=== PATIENT | female | born 1965 | race Caucasian/White ===

== ENCOUNTER 2018-12-30 17:23 | Emergency (ER) | payer OTHER, SELFPAY ==
[2018-12-30] VITALS (60 sets, daily range): BP systolic 102–144; BP diastolic 59–86; PULSE 58–75; RESP 11–24; TEMP 36.7–37.1; O2SAT 96–100
--- NOTE | 2018-12-30 17:34 | DI.RAD_ITS ---
SYMPTOM/DIAGNOSIS: CHEST PAIN, R/O ACUTE DISEASE CHEST X-RAY: PA and lateral. No priors. The heart is normal in size. The lungs are clear. The mediastinal structures and pleura appear intact. CONCLUSION: Normal chest.
--- NOTE | 2018-12-30 17:35 | ED.GENADUL_ITS ---
Discharge Plan Disposition Patient Disposition: HOME Condition: Good Discharge Details Chief Complaint: Chest Pain Clinical Impression: Chest pain, Dizziness, Dyspnea Primary Care Provider: Donna Quan ED Provider: William Chaney [place] Meds and New Rx's Prescriptions: New isosorbide mononitrate 30 mg tablet extended release 24 hr 30 mg PO DAILY Qty: 30 RF: 0 Continued nitroglycerin 0.4 mg Tablet, Sublingual 0.4 mg sublingual DIRECTED RF: 0 atorvastatin 80 mg Tablet 80 mg PO DAILY RF: 0 amlodipine 10 mg Tablet 10 mg PO DAILY RF: 0 clopidogrel 75 mg Tablet 75 mg PO DAILY RF: 0 Discharge Instructions Additional Instructions: Your work-up tonight shows no evidence of a heart attack. You will need close follow-up with your laborer rags and should call the office on Thursday for an ap pointment in the next week. We will start you on long acting nitroglycerin. Continue your other medications as before. Return to the ED for recurrent chest pain, shortness of breath, sweatiness, lightheadedness, other concerns or problems. Discharge Data Discharge Date/Time-TO BE ENTERED AT DEPARTURE: 12/30/18 23:46 Medical Decision Making <Blessing Jackson DO - Last Filed: 01/03/19 21:01> 53-year-old female with a history of coronary artery disease on Plavix, Norvasc and Lipitor who presents with dizziness, shortness of breath and chest pain that started today. Chest heaviness still present on arrival to ED. EKG noted a rate of 64, sinus, with [address] depression in lead I with T wave inversion in V2. Old EKG from [place] notes that the T wave inversion and ST depression appears new compared to EKG in January 2018. Considering patient's history, concern for ACS. She has no DVT/PE risk factors and is not tachycardic or hypoxic, so doubt PE. Cardiac work-up ordered on arrival which is unremarkable. Chest x-ray negative. 1940 --patient denies any current symptoms. She stated she wanted to go home. Advised patient that with her history, would recommend admission overnight, but she is declining at this time. She is agreeable to stay for a second troponin. Medical Records Medical records reviewed: Yes I reviewed the patient's medical records. ECG Data Attestation: I personally reviewed and interpreted this ECG (s) as follows: Interpretation: Rate of 64, sinus, [address] depression in 1. No acute ST elevation. [place] 110. QTc 406. QRS 88 <William Chaney MD - Last Filed: 12/30/18 23:39> Patient signed out to me pending second EKG and troponin. She had presented with an episode of chest pain, shortness of breath, lightheadedness that occurred at work. It did not respond to her nitroglycerin. She arrived here with some residual discomfort. Subsequently resolved on its own. Initial work- up unremarkable other than an initial EKG which showed some mild ST depression in the lateral leads. Patient has had no recurrent symptoms here. Her vital signs have been stable. Her second troponin has come back negative. Her second EKG continues to show minimal but less depression in the lateral leads. Patient's HEART score is a 5. She should be admitted. Will discuss with cardiology at [facility]. Spoke with cardiology, Dr. Samuel, at [facility]. Faxed the EKGs down to him. Reviewed the patient's presentation, EKGs, laboratory studies. He felt that the patient could be discharged home with close follow-up with cardiology. Recommended starting isosorbide mononitrate at 30 mg a day. Patient to call laborer rags Thursday to make appointment for follow-up in the next week or 2. Return to emergency department if she develops any further chest pain, shortness of breath, diaphoresis, lightheadedness. I have discussed the plan with patient and her sister. They are understanding of the plan and in agreement. Lab Data Lab results reviewed: Yes I reviewed the patient's lab results. ECG Data Attestation: I personally reviewed and interpreted this ECG (s) as follows: Prior ECG tracings: available for review Interpretation: Second EKG is sinus bradycardia at 57. Normal axis and intervals. Minimal depression in 1 and aVL. Minimal residual depression in V3 through V6. Appears less than the 1 mm apparent on her first EKG. HPI <Blessing Jackson DO - Last Filed: 01/03/19 21:01> General Mode of arrival: ambulatory . Date/Time Provider Initiated Documentation: 12/30/18 17:34 . Limitations to Documentation: no limitations . Information obtained by: patient . 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 She states she then took a nitro without relief. In route to the emergency department she developed substernal chest heaviness which resolved after 10 minutes. She denies any recent travel, recent surgery, leg pain or swelling. Related Data Home Medications Medication Instructions Recorded Confirmed amlodipine 10 mg PO DAILY 12/30/18 12/30/18 atorvastatin 80 mg PO DAILY 12/30/18 12/30/18 clopidogrel 75 mg PO DAILY 12/30/18 12/30/18 isosorbide mononitrate 30 mg PO DAILY #30 tab 12/30/18 nitroglycerin 0.4 mg SUBLINGUAL DIRECTED 12/30/18 12/30/18 Previous Rx's Medication Instructions Recorded isosorbide mononitrate 30 mg PO DAILY #30 tab 12/30/18 Allergies Allergy/AdvReac Type Severity Reaction Status Date / Time aspirin AdvReac Intermediate Hives Unverified 12/30/18 17:31 choline salicylate AdvReac Intermediate Hives Unverified 12/30/18 17:32 [From Trilisate] magnesium salicylate AdvReac Intermediate Hives Unverified 12/30/18 17:32 [From Trilisate] Penicillins AdvReac Mild yeast Unverified 12/30/18 17:31 infection General Stated Complaint: Chest Pain DOROTHY: 2 Review of Systems <Blessing Jackson DO - Last Filed: 01/03/19 21:01> Review of Systems All systems reviewed & are unremarkable except as noted in HPI and below Constitutional Reports as per HPI, Denies chills and Denies fever(s) Eyes Denies blurry vision ENT Denies dizziness, Denies sore throat and Denies throat swelling Cardiovascular Denies chest pain and Denies dyspnea Respiratory Denies cough and Denies dyspnea Gastrointestinal Denies abdominal pain, Denies diarrhea and Denies vomiting Genitourinary Denies hematuria and Denies dysuria Musculoskeletal Denies back pain and Denies numbness Integumentary/Breasts Denies lesions and Denies rash Neurologic Denies dizziness, Denies focal weakness and Denies numbness Allergic/Immunologic Denies throat swelling PFS <Blessing Jackson DO - Last Filed: 01/03/19 21:01> Medical History Blockage of coronary artery of heart (Acute) Social History Smoking/Tobacco Use Status: Former Tobacco Use Quit Date: 06/23/06 Drug use: Never Do you feel safe at home: Yes Do you feel safe in your relationship?: Yes Exam <Blessing Jackson DO - Last Filed: 01/03/19 21:01> Const General: cooperative, healthy appearing and no acute distress HENMT Head: normal to inspection Face and sinus: normal facial exam Eyes General: appearance normal, both eyes and all related structures EOM: EOM intact bilaterally Neck Neck: normal visual inspection and No submandibular swelling Lymphatic: no lymphadenopathy noted Chest Chest: normal inspection of the chest and no tenderness Resp Effort & Inspection: normal respiratory effort and able to speak in complete sentences Auscultation: clear to auscultation bilaterally Cardio Rate: regular rate Rhythm: regular rhythm GI Inspection: normal to inspection Palpation: soft, not firm, not rigid and nontender Auscultation: normal bowel sounds Skin General skin exam: no rashes or lesions noted Neuro General: alert, awake and oriented x3 Cognition: normal cognition Speech: speech normal Motor: muscle tone normal throughout Sensory Exam: no sensory deficits noted Extrem General: normal to inspection, full ROM, normal capillary refill, no calf tenderness bilaterally and no edema Psych Appearance: grossly normal Mental Status: mental status grossly normal Speech and Movement: speech and movement normal Affect: normal affect Course <Blessing Jackson DO - Last Filed: 01/03/19 21:01> Vital Signs Temperature 98.1 F 12/30/18 17:25 Pulse 64 12/30/18 17:25 Respiratory Rate 18 12/30/18 17:25 Blood Pressure 132/70 12/30/18 17:25 Pulse Oximetry 99 12/30/18 17:25 Temperature 98.1 F 12/30/18 17:25 Temperature Source Skin 12/30/18 17:25 Pulse 64 12/30/18 17:25 Respiratory Rate 18 12/30/18 17:25 Blood Pressure 132/70 12/30/18 17:25 Blood Pressure Position Sitting 12/30/18 17:25 Pulse Oximetry 99 12/30/18 17:25 Oxygen Delivery Method Room Air 12/30/18 17:25 Oxygen Flow Rate 0 12/30/18 17:25 Pain Level 3 12/30/18 17:25 Sign Out <Blessing Jackson DO - Last Filed: 01/03/19 21:01> Sign Out Data: Sign Out Comment: Case endorsed to Dr. Chaney to follow-up on second troponin and final disposition. Last updated by Blessing Jackson DO at 12/30/18 19:58
[2018-12-30 17:53] LABS: Absolute Basophil Count 0.06 k/cumm (0.0-0.2); Absolute Eosinophil Count 0.08 k/cumm (0.0-0.7); Absolute Lymphocyte Count 2.23 k/cumm (1.2-3.4); Absolute Monocyte Count 0.45 k/cumm (0.11-0.7); Absolute Neutrophil Count 3.81 k/cumm (1.2-6.7); Basophils % 0.9; Eosinophils % 1.2; HCT 39.1 % (36.0-46.0); HGB 13.2 g/dL (12.0-15.5); Lymphocytes % 33.6; Mean Corp. HGB Concentration 33.8 g/dL (32.0-36.0); Mean Corpuscular Hemoglobin 28.8 pg (27.0-33.0); Mean Corpuscular Volume 85.4 fL (80-95); Monocytes % 6.8; Neutrophils % 57.5; Platelet Count 323 x1000/uL (130-400); RBC 4.58 m/cumm (4.00-5.20); RBC Distribution Width 13.4 % (11.7-14.6); White Blood Cell Count 6.63 k/cumm (4.4-10.8)
[2018-12-30 18:20] LABS: ALT 37 U/L (12-78); AST 23 U/L (15-37); Albumin 4.1 g/dL (3.4-5.0); Alkaline Phosphatase 93 U/L (46-116); BUN 15 mg/dL (7-18); Bilirubin, Total 0.5 mg/dL (0.2-1.0); Chloride 104 mmol/L (98-107); Estimated GFR 57.56 (mL/min/1.73m2); Glucose 127 mg/dL (70-100); Magnesium 1.8 mg/dL (1.8-2.4); Potassium 3.7 mmol/L (3.5-5.1); Sodium 143 mmol/L (136-145); Total Protein 7.5 g/dL (6.4-8.2); Troponin I < 0.05 ng/mL (0.00-0.06)
--- NOTE | 2018-12-30 19:09 | DI.VRAD_ITS ---
EXAM: XR Chest, 2 Views EXAM DATE/TIME: 12/30/2018 5:35 PM CLINICAL HISTORY: 53 years old, female; Shortness of breath TECHNIQUE: Imaging protocol: XR of the chest, 2 views. COMPARISON: No relevant prior studies available. FINDINGS: Lungs: Unremarkable. No consolidation. Pleural space: Unremarkable. No pleural effusion. No pneumothorax. Heart/Mediastinum: Unremarkable. No cardiomegaly. Bones/joints: No acute skeletal abnormality. IMPRESSION: Negative for acute thoracic pathology. Dictated and Authenticated by: Dustin Bentley MD. Ordering:LEANDRA Funk MD
[2018-12-30 22:16] LABS: Troponin I < 0.05 ng/mL (0.00-0.06)
== END 2018-12-30 23:46 | disposition home or self-care (01) ==
PROVIDERS: Physician Assistant; Emergency Provider Emergency Medicine; PCP Internal Medicine
DX: R07.9 Chest pain, unspecified (principal); R42 Dizziness and giddiness; R06.00 Dyspnea, unspecified; I25.10 Atherosclerotic heart disease of native coronary artery without angina pectoris; Z79.02 Long term (current) use of antithrombotics/antiplatelets
CPT/HCPCS: 36415; 80053; 93005; 99285; 71046; 83735; 84484; 85025; 93010

== ENCOUNTER 2019-01-06 21:53 | Observation (INO) | payer OTHER, SELFPAY ==
[2019-01-06] VITALS (18 sets, daily range): BP systolic 106–143; BP diastolic 55–69; PULSE 57–72; RESP 13–22; TEMP 36.5; O2SAT 98–100
[2019-01-06 22:20] LABS: Abs Immature Grans 0.01 k/cumm (0.0-0.09); Absolute Basophil Count 0.05 k/cumm (0.0-0.2); Absolute Eosinophil Count 0.14 k/cumm (0.0-0.7); Absolute Lymphocyte Count 2.15 k/cumm (1.2-3.4); Absolute Monocyte Count 0.38 k/cumm (0.11-0.7); Absolute Neutrophil Count 2.81 k/cumm (1.2-6.7); Basophils % 0.9; Eosinophils % 2.5; HCT 36.9 % (36.0-46.0); HGB 12.2 g/dL (12.0-15.5); Immature Grans % 0.2; Lymphocytes % 38.8; Mean Corp. HGB Concentration 33.1 g/dL (32.0-36.0); Mean Corpuscular Hemoglobin 28.3 pg (27.0-33.0); Mean Corpuscular Volume 85.6 fL (80-95); Mean Platelet Volume 9.8 fL (8.0-11.0); Monocytes % 6.9; Neutrophils % 50.7; Platelet Count 289 x1000/uL (130-400); RBC 4.31 m/cumm (4.00-5.20); RBC Distribution Width 13.4 % (11.7-14.6); White Blood Cell Count 5.54 k/cumm (4.4-10.8)
--- NOTE | 2019-01-06 22:31 | ED.GENADUL_ITS ---
Discharge Plan Disposition Patient Disposition: [facility] INPATIENT Condition: Good Discharge Details Chief Complaint: Chest Pain Clinical Impression: Chest pain Primary Care Provider: Donna Quan ED Provider: William Chaney [place] Meds and New Rx's Prescriptions: No Action nitroglycerin 0.4 mg Tablet, Sublingual 0.4 mg sublingual DIRECTED RF: 0 atorvastatin 80 mg Tablet 80 mg PO DAILY RF: 0 amlodipine 10 mg Tablet 10 mg PO DAILY RF: 0 clopidogrel 75 mg Tablet 75 mg PO DAILY RF: 0 Medical Decision Making Patient presenting with recurrent chest pain that now radiates into the entire left upper arm and back. Nitroglycerin did not help. She saw her asian studies program chair on Thursday. I reviewed his note. He feels that it is atypical pain. He did want to schedule her for stress imaging to help stratify her risk. This is not scheduled until the . Patient with recurrent prolonged symptoms tonight. EKG tonight shows no acute ST changes. IV established laboratory studies obtained. Essentially asymptomatic here. Labs are unremarkable. First troponin negative. Discussed with hospitalist. Cardiology available tomorrow and should be able to get nuclear imaging done. As this is her second ED visit and her symptoms were more prolonged we will go ahead and bring in observation status, serial enzymes, stress testing. Patient is agreeable with plan. Medical Records Medical records reviewed: Yes I reviewed the patient's medical records. Lab Data Lab results reviewed: Yes I reviewed the patient's lab results. ECG Data Attestation: I personally reviewed and interpreted this ECG (s) as follows: Prior ECG tracings: available for review Interpretation: Sinus rhythm at 67. Normal axis and intervals. No acute ST changes and no significant change from EKG done last week. HPI General Mode of arrival: ambulatory . Date/Time Provider Initiated Documentation: 01/06/19 22:10 . Limitations to Documentation: no limitations . Information obtained by: patient, RN notes reviewed and old records reviewed . HPI Narrative: Patient presents to ED from work with recurrent chest pain, left arm pain, back pain. Patient seen here last week for same. At that time I handled her discharge. I had spoke with [facility] cardiology regarding plan. She was discharged on Imdur and was to follow-up with her asian studies program chair this week. That occurred on Thursday. She reports that despite the Imdur she continued to have episodes of chest pain that would occasionally radiate to the back of her left arm. They were fairly short-lived lasting a minute or 2. She reports that her asian studies program chair discontinued to the Imdur because it was giving her a headache but not helping the chest pain. She has been scheduled for a stress test on January 25. Tonight at work she developed chest pain, left arm pain involving the entire upper arm and back pain. This was not short-lived. The arm discomfort lasted for some time. She took a nitroglycerin with no relief. She then came here. She had no associated symptoms. She currently denies having any pain though intermittently has short-lived discomfort in the arm that comes and goes. She is unable to take aspirin. Related Data Home Medications Medication Instructions Recorded Confirmed amlodipine 10 mg PO DAILY 12/30/18 01/06/19 atorvastatin 80 mg PO DAILY 12/30/18 01/06/19 clopidogrel 75 mg PO DAILY 12/30/18 01/06/19 nitroglycerin 0.4 mg SUBLINGUAL DIRECTED 12/30/18 01/06/19 Allergies Allergy/AdvReac Type Severity Reaction Status Date / Time aspirin AdvReac Intermediate Hives Unverified 01/06/19 22:01 choline salicylate AdvReac Intermediate Hives Unverified 01/06/19 22:01 [From Trilisate] magnesium salicylate AdvReac Intermediate Hives Unverified 01/06/19 22:01 [From Trilisate] Penicillins AdvReac Mild yeast Unverified 01/06/19 22:01 infection General Stated Complaint: Chest Pain DOROTHY: 3 Review of Systems Review of Systems 02/21 Review of Systems completed and is negative except as stated above in HPI (Systems reviewed: Const, Eyes, ENT, Resp, CV, GI, , MSK, Skin, Neuro) [facility] Medical History Blockage of coronary artery of heart (Acute) Cataract (Chronic) delivery delivered (Acute) Ganglion cyst (Acute) High cholesterol (Chronic) Surgical History History of lumpectomy (Acute) History of tubal ligation (Chronic) Social History Smoking/Tobacco Use Status: Former Tobacco Use Quit Date: 06/23/06 Drug use: Never Do you feel safe at home: Yes Do you feel safe in your relationship?: Yes Exam Narrative Exam Narrative: Vitals: Afebrile. Mildly hypertensive. Otherwise normal vitals and pulse oximetry. Const: WDWN female in NAD. HEENT: NC/AT. Normal facial exam. Eyes: Normal conjunctiva and sclera. Neck: Supple. Trachea midline. Lungs: Normal respiratory effort. Lungs are clear. Cor: RRR without murmur/gallop. Good radial pulses. GI: Soft. NT/ND. No guarding or rebound. Neuro: A+O x 3. CN grossly in tact. Good strength and no focal deficit. Ext: No C/C/E. No deformity or tenderness. Skin: Warm and dry without rash. Course Vital Signs Temperature 97.7 F 01/06/19 21:56 Pulse 61 01/06/19 21:56 Respiratory Rate 16 01/06/19 21:56 Blood Pressure 143/68 H 01/06/19 21:56 Pulse Oximetry 100 01/06/19 21:56 Temperature 97.7 F 01/06/19 21:56 Temperature Source Skin 01/06/19 21:56 Pulse 61 01/06/19 21:56 Respiratory Rate 16 01/06/19 22:03 Respiratory Effort Non-Labored 01/06/19 22:03 Blood Pressure 143/68 H 01/06/19 21:56 Pulse Oximetry 100 01/06/19 21:56 Pain Level 2 01/06/19 21:56 Lab/Test Results Lab/Test Results: Laboratory Tests Range/Units 01/06/19 22:15 WBC (4.4-10.8) k/cumm 5.54 RBC (4.00-5.20) m/cumm 4.31 Hgb (12.0-15.5) g/dL 12.2 Hct (36.0-46.0) % 36.9 MCV (80-95) fL 85.6 MCH (27.0-33.0) pg 28.3 MCHC (32.0-36.0) g/dL 33.1 RDW (11.7-14.6) % 13.4 Plt Count (130-400) x1000/uL 289 MPV (8.0-11.0) fL 9.8 Immature Gran % 0.2 Neutrophils % 50.7 Lymphocytes % 38.8 Monocytes % 6.9 Eosinophils % 2.5 Basophils % 0.9 Absolute Neutrophils (1.2-6.7) k/cumm 2.81 Absolute Lymphocytes (1.2-3.4) k/cumm 2.15 Absolute Monocytes (0.11-0.7) k/cumm 0.38 Absolute Eosinophils (0.0-0.7) k/cumm 0.14 Absolute Basophils (0.0-0.2) k/cumm 0.05
[2019-01-06 22:47] LABS: ALT 38 U/L (14-59); AST 21 U/L (15-37); Albumin 3.7 g/dL (3.4-5.0); Alkaline Phosphatase 89 U/L (46-116); Anion Gap 8.8 mmol/L (3-11); BUN 12 mg/dL (7-18); Bilirubin, Total 0.5 mg/dL (0.2-1.0); CO2 28.2 mmol/L (21.0-32.0); CREATININE 0.98 mg/dL (0.55-1.02); Calcium 8.5 mg/dL (8.5-10.1); Chloride 107 mmol/L (98-107); Estimated GFR 58.92 (mL/min/1.73m2); Glucose 148 mg/dL (70-100); Potassium 3.9 mmol/L (3.5-5.1); Sodium 144 mmol/L (136-145)
[2019-01-06 22:48] LABS: Troponin I < 0.05 ng/mL (0.00-0.06)
[2019-01-07] VITALS (40 sets, daily range): BP systolic 107–122; BP diastolic 50–70; PULSE 55–79; RESP 5–24; TEMP 36.6–36.8; O2SAT 95–100
--- NOTE | 2019-01-07 01:37 | W.PM.HP.N ---
Date of service: 01/07/19 Time of Service: 01:37 Assessment and Plan (1) Atypical chest pain: Current visit: Yes Status: Acute continue her current meds of atorvastatin, amlodipine and plavix; keep NPO for stress GXT w/ MPI in the a.m. assuming that all of her troponins are negative tonight. History of Present Illness Chief Complaint: chest pain Narrative: 53 yr old female w/ PMH of HLD, HTN and presumed CAD. She has hx of prior abnormal stress tests but has never had a cardiac catheterization. She presents to the ER w/ c/o of SSCP w/ radiation down her left arm and into her left scapular area. 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 There was no dyspnea nor any diaphoresis nor nausea and vomiting. She took a NTG w/ slight improvement in her CP and she presented to the ER for further evaluation. She had similar episode a week ago but was associated w/ dizziness and dyspnea. At that time her EKG demonstrated [address] depression in lead I and T wave inversion in V2 but no acute ST elevation. Troponins were negative x 2 sets and patients CP had improved. The patient did not want to be admitted overnight. Dr. Chaney who took over her case from Dr. Jackson, called [facility] and spoke w/ Dr. Samuel, engineering recruiter environmental sustainability manager, who recommended starting on Imdur 30 mg daily. She was discharged on Imdur and close follow up with her primary oil and gas superintendent. The patient saw Dr. Jac Diego in [facility]. who indicated that her CP are atypical in that they come and go w/ and w/out exertion sometimes going away in less than a minute and other times lasting hours. He recommended she have a repeat stress with imaging and has set her up for exercise stress echocardiogram but this is not until Jan 25. She quit taking the Imdur after she saw Dr. Diego due to severe headaches while taking the Imdur. Tonight her chest pain had dissipated by the time she arrived to the ER. She still had some left arm pain but this seems to be reproducible w/ palpation or movement of her biceps. Her EKG is unchanged and shows no acute ischemic ST-T changes and her first troponin is negative. She is now admitted for serial troponins and stress MPI in the morning. Her risks for CAD include strong FH (multiple members w/ NE/CAD), former smoker, HLD, age. Of note she is not on ASA due to allergy to trilisate, aspirin and alkaseltzer. She says that anytime she has had aspirin she has broken out w/ hives and at times it has been severe enough to cause her to have facial swelling. Dr. Diego, her oil and gas superintendent, has referred her to an dividend clerk at [facility] to consider ASA desensitization as he feels that she will need ASA in the future. Review of Systems Constitutional Reports system reviewed and no additional complaints, except as docu Cardiovascular Reports as per HPI Respiratory Reports as per HPI [facility] Medical History (Updated 01/07/19 @ 03:10 by Hank Rasheed) Abnormal stress test (Acute) ETT 12/2016 (Dr. Rankin): 6 min., 7 METS, slight CP and leg fatigue, HR 148, bp 184/67, 1.[address] depress 2,3, F, V3-V6; resting HR 44 ETT 01/2018 while on meds: ST sagging inf & lat leads; no CP, HR 135 Cataract (Chronic) Endometriosis (Chronic) Ganglion cyst (Acute) High cholesterol (Chronic) Surgical History (Updated 01/07/19 @ 03:02 by Hank Rasheed) delivery delivered (Acute) Ganglion cyst of dorsum of right wrist (Acute) History of lumpectomy (Acute) History of tubal ligation (Chronic) S/P [id number]-BSO (Acute) Family History (Updated 01/07/19 @ 03:07 by Hank Rasheed) Father Heart disease s/p coronary stents Hyperlipidemia Diabetes History of non-ST elevation myocardial infarction (NSTEMI) Mother Heart disease s/p 3 vessel CABG Brother History of non-ST elevation myocardial infarction (NSTEMI) Heart disease Maternal Grandmother Heart disease Social History (Updated 01/07/19 @ 03:03 by Hank Rasheed) Smoking/Tobacco Use Status: Former Tobacco Use Quit Date: 06/23/06 Pack-years: 15 Tobacco: How many years used: 30 Alcohol Intake: current Alcohol Intake frequency: holidays/special occasions only Alcohol type: hard liquor Drug use: Never Do you feel safe at home: Yes Do you feel safe in your relationship?: Yes History History 1 Para Hx # Term Pregnancies 1 Multiple births Hx # Pregnancies Ectopic pregnancies AB induced Hx Number of Living Children AB spontaneous Meds Home Medications Medication Instructions Recorded Confirmed Type amlodipine 10 mg PO DAILY 12/30/18 01/06/19 History atorvastatin 80 mg PO DAILY 12/30/18 01/06/19 History clopidogrel 75 mg PO DAILY 12/30/18 01/06/19 History nitroglycerin 0.4 mg SUBLINGUAL DIRECTED 12/30/18 01/06/19 History Allergies Allergy/AdvReac Type Severity Reaction Status Date / Time aspirin AdvReac Intermediate Hives Unverified 01/06/19 22:01 choline salicylate AdvReac Intermediate Hives Unverified 01/06/19 22:01 [From Trilisate] magnesium salicylate AdvReac Intermediate Hives Unverified 01/06/19 22:01 [From Trilisate] Penicillins AdvReac Mild yeast Unverified 01/06/19 22:01 infection Exam Const General: cooperative, no acute distress and well groomed Nutritional Appearance: average body habitus and well nourished Orientation: alert, awake and oriented x3 HENMT Head: normal to inspection, no palpable skull fracture, normocephalic and atraumatic Ears: external ears normal and TM's normal bilaterally General nose exam: external nose normal, nares normal and no nasal discharge Face and sinus: normal facial exam, sinuses nontender and face symmetric Mouth: oral mucosae normal, lip normal, tongue normal, oropharynx normal and moist mucous membranes Teeth and gingiva: dentition normal and gingiva normal Throat: posterior oropharynx normal and uvula midline Eyes General: appearance normal, both eyes and all related structures Visual Dowell: normal visual dowell by confrontation Alignment and Position: alignment normal Periorbital: periorbital findings normal Eyelids: eyelids normal Conjunctivae: conjunctivae normal Sclera: sclerae normal Cornea: corneas normal Pupils: PERRL, normal by confrontation and accommodation normal EOM: EOM intact bilaterally Direct ophthalmoscopy: normal light reflex, no photophobia, no papilledema, fundi normal bilaterally and anterior chamber normal Neck Neck: normal visual inspection, full ROM, no lymphadenopathy, trachea midline and supple Thyroid: thyroid normal Carotids: normal carotid upstroke Lymphatic: no lymphadenopathy noted Chest Chest: normal inspection of the chest and normal palpation of entire chest wall Resp Effort & Inspection: normal respiratory effort and able to speak in complete sentences Auscultation: clear to auscultation bilaterally Percussion: percussion normal Cardio Jugular venous pressure: no JVD Palpation: normal PMI Rate: regular rate Rhythm: regular rhythm Heart Sounds: S1 normal, S2 normal and normal, physiologic split S2 Pulses: normal peripheral pulses GI Inspection: normal to inspection Palpation: soft, no hepatosplenomegaly and nontender Percussion: normal to percussion Auscultation: normal bowel sounds Skin General skin exam: no rashes or lesions noted, elasticity normal and turgor normal Lesions: no lesions Rashes: no rashes Trauma: no lacerations or abrasions Hair: normal Nails: normal Neuro General: alert, awake, oriented x3, moves all extremities and no focal motor deficits Cognition: normal cognition Speech: speech normal Motor: muscle tone normal throughout, strength 5/5 throughout, no pronator drift, no movement abnormalities noted and no fasciculations Sensory Exam: no sensory deficits noted Extrem General: normal to inspection, full ROM, normal capillary refill, no joint enlargement, no clubbing, cyanosis or edema and no calf tenderness bilaterally Psych Appearance: grossly normal Mental Status: mental status grossly normal Mood: congruent mood Affect: normal affect Attitude: cooperative Thought Process: normal Thought Content: normal Insight: insight good Judgment: judgment good Results Imaging Chest x-ray: report reviewed EKG: image reviewed (NSR rate 67 bpm, no acute ST-T changes, normal EKG) Labs : 01/06/19 22:15 01/06/19 22:15 Laboratory Results - last 24 hr 01/06/19 01/06/19 22:15 22:15 WBC 5.54 RBC 4.31 Hgb 12.2 Hct 36.9 MCV 85.6 MCH 28.3 MCHC 33.1 RDW 13.4 Plt Count 289 MPV 9.8 Immature Gran % 0.2 Neutrophils % 50.7 Lymphocytes % 38.8 Monocytes % 6.9 Eosinophils % 2.5 Basophils % 0.9 Absolute Neutrophils 2.81 Absolute Lymphocytes 2.15 Absolute Monocytes 0.38 Absolute Eosinophils 0.14 Absolute Basophils 0.05 Sodium 144 Potassium 3.9 Chloride 107 Carbon Dioxide 28.2 Anion Gap 8.8 BUN 12 Creatinine 0.98 Estimated GFR/1.73 m2 58.92 Glucose 148 H Calcium 8.5 Magnesium 2.0 Total Bilirubin 0.5 AST 21 ALT 38 Alkaline Phosphatase 89 Troponin I < 0.05 Total Protein 7.0 Albumin 3.7 Last Vital Signs Temp 36.5 C 01/06/19 21:56 Pulse 62 01/07/19 00:00 Resp 20 01/07/19 00:30 BP 109/55 L 01/07/19 00:00 Pulse Ox 99 01/07/19 00:30
[2019-01-07 01:57] LABS: Troponin I < 0.05 ng/mL (0.00-0.06)
[2019-01-07] MEDS: Normal Saline 1,000 ML 80 ML IV (03:30)
[2019-01-07] MEDS: Normal Saline Flush 10 ML SYR IVP (03:30)
[2019-01-07 06:09] LABS: Troponin I < 0.05 ng/mL (0.00-0.06)
--- NOTE | 2019-01-07 08:28 | W.PM.PROGNOT ---
Date of Service Date of service: 01/07/19 Time of Service: 08:29 Subjective Interval history since last seen: No CP at this time. Not orthostatic. On monitor, has remains in NSR 59-70. Stress test - Objective Objective Clinical Data: Abnormal lab results 01/06/19 Range/Units 22:15 Glucose 148 H (70-100) mg/dL Vital Signs Temperature 36.6 C 01/07/19 04:00 Temperature Source Temporal Artery Scan 01/07/19 04:00 Pulse 59 L 01/07/19 06:00 Pulse 60 01/07/19 06:00 Respiratory Rate 20 01/07/19 06:00 Respiratory Effort Non-Labored 01/07/19 04:00 Respiratory Depth Normal 01/07/19 04:00 Respiratory Pattern Normal 01/07/19 04:00 Blood Pressure 111/63 01/07/19 06:00 Blood Pressure Mean 75 01/07/19 06:00 Blood Pressure Position Supine 01/07/19 04:00 Pulse Oximetry 96 01/07/19 06:00 Oxygen Delivery Method Room Air 01/07/19 04:00 Oxygen Flow Rate 0 01/07/19 04:00 Pain Level 0 01/07/19 04:00 Intake & Output 01/06/19 01/06/19 01/07/19 11:59 23:59 11:59 Output Total 800 / 800 Balance -800 / -800 Weight 77.5 kg 69.7 kg Output: Urine 800 / 800 Other: Urine Color Pale Urine Appearance Clear Urine Odor None Voiding Methods Bedside Commode Laboratory Results WBC 5.54 k/cumm (4.4-10.8) 01/06/19 22:15 RBC 4.31 m/cumm (4.00-5.20) 01/06/19 22:15 Hgb 12.2 g/dL (12.0-15.5) 01/06/19 22:15 Hct 36.9 % (36.0-46.0) 01/06/19 22:15 MCV 85.6 fL (80-95) 01/06/19 22:15 MCH 28.3 pg (27.0-33.0) 01/06/19 22:15 MCHC 33.1 g/dL (32.0-36.0) 01/06/19 22:15 RDW 13.4 % (11.7-14.6) 01/06/19 22:15 Plt Count 289 x1000/uL (130-400) 01/06/19 22:15 MPV 9.8 fL (8.0-11.0) 01/06/19 22:15 Immature Gran % 0.2 01/06/19 22:15 50.7 01/06/19 22:15 38.8 01/06/19 22:15 6.9 01/06/19 22:15 2.5 01/06/19 22:15 0.9 01/06/19 22:15 Absolute Neutrophils 2.81 k/cumm (1.2-6.7) 01/06/19 22:15 Absolute Lymphocytes 2.15 k/cumm (1.2-3.4) 01/06/19 22:15 Absolute Monocytes 0.38 k/cumm (0.11-0.7) 01/06/19 22:15 Absolute Eosinophils 0.14 k/cumm (0.0-0.7) 01/06/19 22:15 Absolute Basophils 0.05 k/cumm (0.0-0.2) 01/06/19 22:15 Sodium 144 mmol/L (136-145) 01/06/19 22:15 Potassium 3.9 mmol/L (3.5-5.1) 01/06/19 22:15 Chloride 107 mmol/L (98-107) 01/06/19 22:15 Carbon Dioxide 28.2 mmol/L (21.0-32.0) 01/06/19 22:15 8.8 mmol/L (3-11) 01/06/19 22:15 BUN 12 mg/dL (7-18) 01/06/19 22:15 0.98 mg/dL (0.55-1.02) 01/06/19 22:15 58.92 (mL/min/1.73m2) 01/06/19 22:15 Glucose 148 mg/dL (70-100) H 01/06/19 22:15 Calcium 8.5 mg/dL (8.5-10.1) 01/06/19 22:15 Magnesium 2.0 mg/dL (1.8-2.4) 01/06/19 22:15 0.5 mg/dL (0.2-1.0) 01/06/19 22:15 AST 21 U/L (15-37) 01/06/19 22:15 ALT 38 U/L (14-59) 01/06/19 22:15 89 U/L (46-116) 01/06/19 22:15 < 0.05 ng/mL (0.00-0.06) 01/07/19 05:35 7.0 g/dL (6.4-8.2) 01/06/19 22:15 3.7 g/dL (3.4-5.0) 01/06/19 22:15
--- NOTE | 2019-01-07 08:30 | MERGEMPI_ITS ---
*[facility]* *[facility]* [address] [place] [address] Myocardial Perfusion Imaging - SPECT Walter protocol Date of study: 01/07/2019 *PATIENT PRESENTATION* Height: 162.6cm (64in) Blood Pressure: Weight: 72.7kg (160lb) BSA: 1.83m^2 Referring physician: Abelardo Amado Ordering physician: Rubio Rasheed Impressions: Normal study after maximal exercise. Summary: 1. Myocardial perfusion imaging: No myocardial perfusion defects noted. 2. The calculated left ventricular ejection fraction after stress: 68%. LV global systolic function is normal. No left ventricular regional motion abnormality. 3. Stress: The target heart rate was achieved. Indication: R07.9. History: REASON FOR TESTING: PATIENT TESTING TODAY FOR FURTHER RISK STRATIFICATION. PATIENT PRESENTED TO THE ER ON 12/30 AND AGAIN ON 01/06 FOR CARDIAC RELATED SYMPTOMS. ON 01/06 PATIENT PRESENTED TO THE ER WITH MIDSTERNAL AND LEFT SIDED CHEST PAIN THAT RADIATED ROUND TO LEFT BACK AND LEFT UPPER ARM THAT WAXED AND WANED FOR APPROXIMATELY 2 MINUTES BEFORE GOING AWAY ON ITS OWN. ON 12/30 PATIENT HAD VERY SIMILAR SYMPTOMS. SEE PATIENT HISTORY FOR MORE DETAILED INFORMATION. PATIENT DENIES CHEST PAIN UPON ARRIVAL TO TESTING TODAY. SIGNIFICANT PAST MEDICAL HISTORY: PATIENT'S BROTHER OF A HEART ATTACK AT AGE 55. PATIENT HAS PRIOR HISTORY OF ABNORMAL STRESS TESTS BUT HAS NEVER HAD CATHETERIZATION. SMOKING STATUS: QUIT 2006. SMOKED FOR 30 YEARS, 1/2 PPD. 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 Risk factors: Family history of coronary artery disease. ALLERGIES: ASPIRIN, TRILISATE, PENICILLIN, ALOE, GHADA SELTZER. MEDICATIONS: NITROGLYCERIN 0.4 MG SL PRN, CLOPIDOGREL 75 MG DAILY, ATORVASTATIN 80 MG DAILY, AMLODIPINE 10 MG DAILY, ACETAMINOPHEN 1000 MG PRN, FLAX SEED DAILY. Imaging Technique: Protocol: Walter protocol. Acquisition: Gated SPECT; 1 day - rest/stress. The patient was imaged in the supine position. Attenuation correction used. Isotope administration: - Rest. Tc[99m]-sestamibi. Dose: 11mCi. Injection time: 12:15 PM. Injection to stress time: 00:45. - Stress. Tc[99m]-sestamibi. Dose: 33mCi. Injection time: 03:00 PM. 1-2 min before end of exercise Baseline ECG: SINUS RHYTHM. HR 71 BPM. Stress protocol: + +---+ + !Stage !HR !BP (mmHg) ! + +---+ + !Baseline supine !71 !122/66 (85) ! + +---+ + !Baseline standing !84 !118/70 (86) ! + +---+ + !Stage I; 1.7mph, 10degrees; 3 min !117!128/82 (97) ! + +---+ + !Stage II; 2.5mph, 12degrees; 3 min!133!140/84 (103)! + +---+ + !Immediate post stress !156! ! + +---+ + !Recovery; 1 min !136!190/78 (115)! + +---+ + !Recovery; 3 min !81 !122/64 (83) ! + +---+ + !Recovery; 6 min !75 !110/62 (78) ! + +---+ + * Stress results: STRESS TEST ENDED IN 8 MINUTES 34 SECONDS DUE TO FATIGUE. NORMAL HEART RATE AND BLOOD PRESSURE RESPONSE TO EXERCISE. MAX HEART RATE:156. 94 % OF TARGET HEART RATE ACHIEVED. MET'S: 10.16 NO ECTOPY. NO ANGINA. NO SIGNIFICANT ST SEGMENT CHANGES. ABOVE AVERAGE FUNCTIONAL CAPACITY. The target heart rate was achieved. The rate-pressure product for the peak heart rate and blood pressure was 98822tc Hg/min. Myocardial perfusion: Imaging information: gated. Left ventricular size is normal. No myocardial perfusion defects noted. Ventricular Function (Wall Motion): The calculated left ventricular ejection fraction after stress: 68%. LV global systolic function is normal. No left ventricular regional motion abnormality. Study data: Abelardo Amado MD supervised and was readily available during the procedure. This study was interpreted by [facility]. Study status: Routine. Consent: The risks, benefits, and alternatives to the procedure were explained to the patient and informed consent was obtained. Procedure: Initial setup. A baseline ECG was recorded. Surface ECG leads and manual cuff blood pressure measurements were monitored. Heart sounds: Normal. Lung sounds: Normal. Treadmill exercise testing was performed using the Walter protocol. Study completion: All catheters inserted during the procedure were removed. The patient tolerated the procedure well and was discharged from the lab. Discharge: The patient left the laboratory in stable condition. Birthdate: Patient birthdate: 1965. Sex: Gender: female. Study date: Study date: 01/07/2019. Study time: 00:01 AM. Signature Documentation: - The imaging portion of this study was interpreted by Nuclear Sales Hunter Abelardo Amado MD. - The imaging portion of this study was interpreted by Nuclear Radiologist Padma Mercado MD. - The Stress ECG portion of this study was interpreted by Abelardo Amado MD. Electronically signed by Abelardo Amado 01/07/2019 16:45
[2019-01-07] MEDS: Enoxaparin 40 MG/0.4 ML SYR SC (09:01)
[2019-01-07] MEDS: amLODIPine 10 MG TAB PO (09:01)
[2019-01-07] MEDS: Clopidogrel 75 MG TAB PO (09:01)
--- NOTE | 2019-01-07 15:52 | PDOC.CMIN ---
- If Service Date Differs Date of service: 01/07/19 Time of Service: 15:52 Care Management Initial Assess REASON FOR HOSPITALIZATION:: Chest Pain PAST MEDICAL HISTORY/PAST SURGICAL HISTORY:: Medical History. Blockage of coronary artery of heart (Acute). Cataract (Chronic). delivery delivered (Acute). Ganglion cyst (Acute). High cholesterol (Chronic). Surgical History. History of lumpectomy (Acute). History of tubal ligation (Chronic) PREVIOUS FUNCTIONAL STATUS/SOCIAL/FAMILY SUPPORTS:: CM unable to meet with patient. Reviewed patient's clinical chart and MD's H&P. Mirian lives in [place], she is listed as with her daughter and sister both listed as contacts. 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 She has been to the ED twice in the past several days for the same complaint, and was admitted for observation on 01/06/2019. CURRENT FUNCTIONAL STATUS:: CM unable to meet patient as she was out of the room for testing. Per multi disciplinary rounds, if stress test is positive she will be transferred to [facility]. ADVANCE DIRECTIVES:: None on file. Has patient been provided with information about the portal?: No Did the patient sign up for the portal?: No CODE STATUS:: Full Code INSURANCE COVERAGE / FINANCIAL ISSUES:: GISC/[employer] CURRENT HOME/COMMUNITY SERVICES/EQUIPMENT:: none identified at this time PRIMARY CARE PHYSICIAN:: Donna Quan POTENTIAL DISCHARGE NEEDS:: Pending disposition PATIENT/FAMILY EDUCATION NEEDS:: Review discharge plan, discussion of self care needs, Ask Me Three ANTICIPATED BARRIERS TO DISCHARGE:: None identified at this time TRANSPORTATION:: TBD by disposition PLAN:: Patient is having a stress test, anticipate possible transfer. CM to follow and provide support.
--- NOTE | 2019-01-07 17:25 | W.PM.DS.N ---
Date of service: 01/07/19 Time of Service: 17:25 DS: Diagnosis Discharge Diagnosis (1) Atypical chest pain: Status: Acute Asessment and Plan: negative nuclear stress test 01/07/19 Discharge Plan Disposition Patient Disposition: HOME Condition: Good Discharge Details Chief Complaint: Chest Pain Clinical Impression: Chest pain Reason For Visit: CHEST PAIN Admit Date/Time: 01/07/19 00:09 Admit Provider: Hank Rasheed Attending Provider: Hank Rasheed Primary Care Provider: Donna Quan ED Provider: [facility] Hospital Course: Ms Garay is a 53 year old female with PMHx of prior abnormal stress tests (EKG) but who has never had a cardiac cath, as well as h/o hypertension and hyperlipidemia, observed on [facility] hospitalist service on 01/07/19 for atypical chest pain. She ruled out for acute coronary syndrome by troponins. She did not have any arrhythmic events on tele and was chest pain free when she underwent a nuclear stress test today, which was negative for ischemia, demonstrated an EF of 68% and no LV wall motion abnormalities. The patient is medically stable for discharge home today. She is encouraged to call her security compliance specialist early next week to let him know that she had a normal nuclear stress test. We are not going to adjust her medications at this time and will defer medication management to her security compliance specialist. The patient verbalized understanding of my instructions. Home Meds and New Rx's Prescriptions: Continued nitroglycerin 0.4 mg Tablet, Sublingual 0.4 mg sublingual DIRECTED RF: 0 No Action atorvastatin 80 mg Tablet 80 mg PO DAILY RF: 0 amlodipine 10 mg Tablet 10 mg PO DAILY RF: 0 clopidogrel 75 mg Tablet 75 mg PO DAILY RF: 0 Discharge Instructions Instructions: Noncardiac Chest Pain (DC) Additional Instructions: Return to the hospital with any fever, bleeding, chest pain, or shortness of breath. Continue to take your medications unless your security compliance specialist tells you to stop them. You may return to work on 01/10/19. Referrals: Donna Quan [Primary Care Provider] - Activity:: Activity as Tolerated Equipment/Supplies:: No Equipment Needed Diet:: Low Sodium Discharge Orders Discharge Orders: Discharge Order (Routine); Ordered 01/07/19 Ordered By: Leann Humphrey Exam Narrative Exam Narrative: General: A&Ox3, NAD HEENT: EOMI, MMM Heart: RRR, no m/r/g Lungs: CTAB Abdomen: soft, nontender, nondistended Extremities: no e/c/c BLE's DS: Data Vitals/I&O Vitals and I&O: Vital Signs Temperature 36.8 C 01/07/19 07:37 Temperature Source Temporal Artery Scan 01/07/19 07:37 Pulse 78 01/07/19 07:45 Pulse Rhythm Regular 01/07/19 07:37 Pulse 72 01/07/19 09:45 Respiratory Rate 20 01/07/19 09:45 Respiratory Effort 01/07/19 07:37 Respiratory Depth Normal 01/07/19 07:37 Respiratory Pattern Normal 01/07/19 07:37 Blood Pressure 113/70 01/07/19 07:45 Blood Pressure Mean 80 01/07/19 07:45 Blood Pressure Position Supine 01/07/19 04:00 Pulse Oximetry 98 01/07/19 07:40 Oxygen Delivery Method Room Air 01/07/19 07:37 Oxygen Flow Rate 0 01/07/19 07:37 Pain Level 0 01/07/19 07:37 Comment 01/07/19 07:37 Intake & Output 01/06/19 01/07/19 01/07/19 23:59 11:59 23:59 Intake Total 50 / 50 Output Total 1525 / 1525 Balance -1475 / -1475 Weight 77.5 kg 69.7 kg Intake: Oral 50 / 50 Output: Urine 1525 / 1525 Other: Urine Color Yellow Urine Appearance Clear Urine Odor None Voiding Methods Bedside Commode Completed studies during hospitalization [Text1]: MPI: Normal study after maximal exercise. Summary: 1. Myocardial perfusion imaging: No myocardial perfusion defects noted. 2. The calculated left ventricular ejection fraction after stress: 68%. LV global systolic function is normal. No left ventricular regional motion abnormality. 3. Stress: The target heart rate was achieved. Labs on day of discharge: Labs from last 24 hours 01/07/19 01/07/19 01/06/19 05:35 01:30 22:15 WBC 5.54 RBC 4.31 Hgb 12.2 Hct 36.9 MCV 85.6 MCH 28.3 MCHC 33.1 RDW 13.4 Plt Count 289 MPV 9.8 Immature Gran % 0.2 Neutrophils % 50.7 Lymphocytes % 38.8 Monocytes % 6.9 Eosinophils % 2.5 Basophils % 0.9 Absolute Neutrophils 2.81 Absolute Lymphocytes 2.15 Absolute Monocytes 0.38 Absolute Eosinophils 0.14 Absolute Basophils 0.05 Sodium Potassium Chloride Carbon Dioxide Anion Gap BUN Creatinine Estimated GFR/1.73 m2 Glucose Calcium Magnesium Total Bilirubin AST ALT Alkaline Phosphatase Troponin I < 0.05 < 0.05 Total Protein Albumin 01/06/19 22:15 WBC RBC Hgb Hct MCV MCH MCHC RDW Plt Count MPV Immature Gran % Neutrophils % Lymphocytes % Monocytes % Eosinophils % Basophils % Absolute Neutrophils Absolute Lymphocytes Absolute Monocytes Absolute Eosinophils Absolute Basophils Sodium 144 Potassium 3.9 Chloride 107 Carbon Dioxide 28.2 Anion Gap 8.8 BUN 12 Creatinine 0.98 Estimated GFR/1.73 m2 58.92 Glucose 148 H Calcium 8.5 Magnesium 2.0 Total Bilirubin 0.5 AST 21 ALT 38 Alkaline Phosphatase 89 Troponin I < 0.05 Total Protein 7.0 Albumin 3.7 PFSH Medical History (Updated 01/07/19 @ 03:10 by Hank Rasheed) Abnormal stress test (Acute) ETT 12/2016 (Dr. Rankin): 6 min., 7 METS, slight CP and leg fatigue, HR 148, bp 184/67, 1.[address] depress 2,3, F, V3-V6; resting HR 44 ETT 01/2018 while on meds: ST sagging inf & lat leads; no CP, HR 135 Cataract (Chronic) Endometriosis (Chronic) Ganglion cyst (Acute) High cholesterol (Chronic) Surgical History (Updated 01/07/19 @ 03:02 by Hank Rasheed) delivery delivered (Acute) Ganglion cyst of dorsum of right wrist (Acute) History of lumpectomy (Acute) History of tubal ligation (Chronic) S/P [id number] (Acute) Family History (Updated 01/07/19 @ 03:07 by Hank Rasheed) Father Heart disease s/p coronary stents Hyperlipidemia Diabetes History of non-ST elevation myocardial infarction (NSTEMI) Mother Heart disease s/p 3 vessel CABG Brother History of non-ST elevation myocardial infarction (NSTEMI) Heart disease Maternal Grandmother Heart disease Social History (Updated 01/07/19 @ 03:03 by Hank Rasheed) Smoking/Tobacco Use Status: Former Tobacco Use Quit Date: 06/23/06 Pack-years: 15 Tobacco: How many years used: 30 Alcohol Intake: current Alcohol Intake frequency: holidays/special occasions only Alcohol type: hard liquor Drug use: Never Do you feel safe at home: Yes Do you feel safe in your relationship?: Yes History History 1 Para Hx # Term Pregnancies 1 Multiple births Hx # Pregnancies Ectopic pregnancies AB induced Hx Number of Living Children AB spontaneous
== END 2019-01-07 18:20 | disposition home or self-care (01) ==
LOC: ER 01-07 00:40 → ICU 01-07 00:55
PROVIDERS: Admitting Provider Internal Medicine; Emergency Provider Emergency Medicine; PCP Internal Medicine; Visit Provider Internal Medicine
DX: R07.89 Other chest pain (principal); I10 Essential (primary) hypertension; E78.5 Hyperlipidemia, unspecified; Z82.49 Family history of ischemic heart disease and other diseases of the circulatory system; Z87.891 Personal history of nicotine dependence
CPT/HCPCS: 36415; 78452; 80053; 93005; 99217; 99220; 99285; J1650; 83735; 84484; 85025; 93010; 93017; 99284; G0378; J2785

== ENCOUNTER 2022-05-26 01:15 | Outpatient (CLI) | payer BC, SELFPAY ==
--- NOTE | 2022-05-26 11:30 | DI.MRI_ITS ---
Exam(s) MR UPPER JOINT RT WO EXAM: MR UPPER JOINT RT WO CLINICAL HISTORY: BICEPS TENDINITIS ON RT, M75.21, ? BICEPS TEAR. TECHNIQUE: Multiplanar multisequence MRI was performed. COMPARISON: No exams were available for comparison FINDINGS: BONES: There is mild edema in the posterior aspect of the radial head. No cortical fracture is ident ified. JOINTS: The articular cartilage is unremarkable. No joint effusion is present. TENDONS: Common flexors: Unremarkable. Common extensors: Unremarkable. Biceps: There is fluid seen around the biceps tendon at its insertion site. There also appears to be a partial tear of the biceps tendon at its insertion site. Triceps: Unremarkable. MUSCLES: Unremarkable. MEDIAN NERVE: Unremarkable on this noncontrast examination. ULNAR NERVE: Unremarkable on this noncontrast examination. SOFT TISSUES: Unremarkable. LIGAMENTS: Ulnar collateral: Unremarkable. Radial collateral: Unremarkable. OTHER: IMPRESSION: 1. Partial tear of the biceps tendon at its insertion site with surrounding edema. 2. Marrow edema seen in the posterior radial head without definite fracture. This may represent a co ntusion. If there is continued clinical concern, a CT scan may be obtained for further evaluation. DATA REPOSITORY:
== END 2022-05-26 01:35 ==
LOC: DI 01:16
PROVIDERS: PCP Internal Medicine; Visit Provider Orthopaedic Surgery
DX: S46.211A Strain of muscle, fascia and tendon of other parts of biceps, right arm, initial encounter (principal); X58.XXXA Exposure to other specified factors, initial encounter
CPT/HCPCS: 73221